=== PATIENT | female | born 1970 | race Caucasian/White ===

== ENCOUNTER 2016-12-26 10:40 | Emergency (ER) | payer MEDICAID ==
[2016-12-26 10:57] VITALS: BP 142/105; PULSE 88; RESP 18; TEMP 97; O2SAT 97
--- NOTE | 2016-12-26 11:02 | EDPHY ---
H & P Time Seen by Provider: 12/26/16 10:51 HPI/ROS: CHIEF COMPLAINT: Right flank pain HPI: The patient is a 46-year-old female with a history of remote kidney stone. Patient states that for the last approximately 5 days, she has felt intermittent stabbing pain to her right flank which is slowly been radiate RN to her abdomen. Her last 48 hours she has noticed some dysuria and potentially mild hematuria. She denies fevers. She denies trauma. She denies numbness, weakness or tingling. REVIEW OF SYSTEMS: Aside from elements discussed in the HPI, a comprehensive 10-point review of systems was reviewed and is negative. PMH: Includes prior kidney stone, hypertension, seizure disorder. SOCIAL HISTORY: Denies alcohol or drug abuse. PHYSICAL EXAM: General:Patient is alert, in no acute distress. ENT:Eyes are normal to inspection. ENT inspection normal. Neck: Normal inspection. Full range of motion. Respiratory:No respiratory distress. Breath sounds normal bilaterally. Cardiovascular: Regular rate and rhythm. Strong peripheral pulses. Normal cap refill. Abdomen:The abdomen is nontender to palpation. There are no peritoneal signs. There are normal bowel sounds. Back: Normal to inspection. No tenderness to palpation. Skin: Normal color. No rash. Warm and dry. Extremities: Normal appearance. Full range of motion. Neuro: Oriented x3. Normal motor function. Normal sensory function. Smoking Status: Never smoked Constitutional: Initial Vital Signs Temperature (C) 36.1 C 12/26/16 10:54 Heart Rate 88 12/26/16 10:54 Respiratory Rate 18 12/26/16 10:54 Blood Pressure 142/105 H 12/26/16 10:54 O2 Sat (%) 97 12/26/16 10:54 O2 Delivery Mode Room Air Allergies/Adverse Reactions: No Known Allergies Allergy (Unverified 12/26/16 10:53) Home Medications: Medication Instructions Recorded Htn Med 12/26/16 Sz Med 12/26/16 Zipsor 12/26/16 MDM/Departure - MDM Imaging Results: Imaging Impressions Abdomen/Pelvis CT 12/26/16 11:01 Impression: 1. No acute findings in the abdomen or pelvis 2. Fatty liver 3. Additional findings as above. Findings discussed with Dr. Beau Whitt, on December 26, 2016 at 1134 hours. Attention: This CT examination is specifically designed to evaluate patients who are clinically suspected of having acute obstructive uropathy. This examination does not use radiographic contrast, and as such, provides only a limited evaluation of the abdomen, pelvis and retroperitoneum. If there is further clinical suspicion for pathological conditions other than obstructive uropathy, a complete CT evaluation of the abdomen and pelvis utilizing intravenous and oral contrast should be considered. Imaging: Discussed imaging studies w/ nail assembly machine operator Radiologist, I viewed and interpreted images myself ED Course/Re-evaluation: This patient presents with left flank pain but her ED workup is normal. There is no evidence of UTI, pyelonephritis, appendicitis, kidney stone or bowel obstruction. There is some proximal colon constipation, which may be the etiology of her symptoms. I see no indication for empiric antibiotics or further imaging at this time. The patient is comfortable to go home and try conservative management. - Depart Disposition: Home, Routine, Self-Care Clinical Impression: Flank pain Condition: Good Instructions: Flank Pain (ED) Additional Instructions: Your pain may be due to constipation. Try and [id number] laxative and use as directed. If pain persists, return to the ED for further testing. Return immediately for severe pain, fever, or other concerns. Referrals: JAVIER COLEMAN [Primary Care Provider] - As per Instructions
[2016-12-26 12:00] LABS: COLOR YELLOW; LEUKOCYTE ESTERASE,URINE NEGATIVE (NEGATIVE); NITRITE,URINE NEGATIVE (NEGATIVE)
== END 2016-12-26 12:37 | disposition home or self-care (01) ==
LOC: CED 10:40
DX: R10.9 Unspecified abdominal pain (principal); I10 Essential (primary) hypertension
CPT/HCPCS: 74176-PO; 81003-PO